=== PATIENT | female | born 1965 | race Caucasian/White ===

== ENCOUNTER 2016-06-08 20:53 | Emergency (ER) | payer SELFPAY ==
[~2016-06-08 20:53] MED LIST: AUBRA PO; BENTYL10 M1 PO; MACA ROOT5 GM MC; NO HOME MEDICATION XX; NORCO 5-325 TA1 EACH PO; ZOFRAN4 M2 PO; ZYRTEC10 M7 PO
[2016-06-08 21:48] LABS: BASO % 0.2 % (0-2); EOS % 1.7 % (0-7); EOSINOPHIL ABSOLUTE COUNT 0.2 tho/cmm (0.0-0.7); HCT-HEMATOCRIT 39.7 % (34.0-49.0); HGB-HEMOGLOBIN 13.6 gm/dl (12.0-15.5); IMMATURE GRANULOCYTES ABSOLUTE 0.03 tho/cmm (0-0.03); IMMATURE GRANULOCYTES PERCENT 0.3 % (0-0.3); LYMPH % 24.1 % (20-45); LYMPH ABSOLUTE COUNT 2.2 tho/cmm (0.8-4.5); MCH (MEAN CORPUSCULAR HGB) 29.8 pg (28.0-32.0); MCHC MEAN CORPUSCULAR HGB CONC 34.3 % (32.0-36.0); MCV (MEAN CELL VOLUME) 87.1 fl (82.0-96.0); MEAN PLATELET VOLUME 10.1 cmc (9.4-12.4); MONO % 7.3 % (0-12); MONOCYTE ABSOLUTE COUNT 0.7 tho/cmm (0.0-1.2); NEUTROPHILS % 66.4 % (40-80); PLATELET COUNT 326 tho/cmm (150-450); RED BLOOD COUNT 4.56 mil/cmm (4.00-5.20); RED CELL DISTRIBUTION WIDTH 12.3 % (12.4-16.4); WHITE BLOOD COUNT 9.1 tho/cmm (4.0-10.0)
[2016-06-08 21:51] LABS: PROTHROMBIN TIME 11.5 SECONDS (9.0-13.6)
[2016-06-08 22:03] LABS: PREGNANCY-SERUM NEGATIVE (NEGATIVE)
[2016-06-08 22:04] LABS: ALB/GLOB RATIO 0.7 (0.8-2.0); ALBUMIN 3.4 g/dl (3.5-5.0); ALKALINE PHOSPHATASE 76 U/L (33-138); ALT/SGPT 24 U/L (12-78); ANION GAP 14 mmol/L (0-20); AST/SGOT 18 U/L (10-40); BILIRUBIN,TOTAL 0.3 mg/dl (0-1.5); BLOOD UREA NITROGEN 11 mg/dl (6-24); CALCIUM 8.5 mg/dl (8.5-10.5); CARBON DIOXIDE-VENOUS 23 mmol/L (22-32); CHLORIDE 108 mmol/l (96-110); CREATININE 0.61 mg/dl (0.50-1.10); GLUCOSE 113 mg/dL (70-110); POTASSIUM 3.5 mmol/L (3.7-5.1); SODIUM 141 mmol/L (135-145); eGFR VALUE FOR BLACK >90 mL/Min
[2016-06-08 22:07] LABS: ESR-ERYTHROCYTE SED RATE 13 mm/hr (0-30)
[2016-06-08 23:14] LABS: MAGNESIUM 1.9 mg/dl (1.8-2.6)
[2016-06-08 23:17] LABS: TSH-THYROID STIMULATING HORM. 2.92 uIU/ml (0.40-3.80)
[2016-06-09] MEDS ORDERED: PROBIOTIC1 EAC9 PO (00:12)
[2016-06-09 00:23] LABS: URINE BILIRUBIN NEGATIVE (NEG); URINE BLOOD MODERATE (NEG); URINE GLUCOSE (UA) NEGATIVE (NEG); URINE KETONE NEGATIVE (NEG); URINE LEUKOCYTE ESTERASE NEGATIVE (NEG); URINE NITRITE NEGATIVE (NEG); URINE PROTEIN NEGATIVE (NEG); URINE SPECIFIC GRAVITY 1.005 (1.003-1.030)
[2016-06-09 00:35] LABS: URINE COLOR YELLOW
[2016-06-09 00:36] LABS: URINE APPEARANCE HAZY
[2016-06-09] MEDS ORDERED: ALLEGRA ALLERG180 M1 PO (00:46)
[2016-06-09] MEDS ORDERED: PEPCID20 M1 PO (00:47)
[2016-06-09 00:49] LABS: URINE BACTERIA 2+; URINE EPITHELIAL CELLS RARE /[HPF] (0-10); URINE RBC 0-3 /[HPF] (0-5); URINE WBC RARE /[HPF] (0-5)
== END 2016-06-09 01:45 ==
LOC: EDMED 20:53
PROVIDERS: Emergency Medicine
DX: R07.9 Chest pain, unspecified (principal); R20.2 Paresthesia of skin; F41.9 Anxiety disorder, unspecified; K21.9 Gastro-esophageal reflux disease without esophagitis; Z87.891 Personal history of nicotine dependence; Z79.899 Other long term (current) drug therapy
CPT/HCPCS: J7030